=== PATIENT | female | born 1980 | race African-American/Black ===

== ENCOUNTER 2018-02-03 09:28 | Inpatient (IN) | payer OTHER ==
[2018-01-31 13:09] VITALS: BMI 36.9
--- NOTE | 2018-02-03 00:39 | HP ---
HISTORY OF PRESENT ILLNESS: Ms. Levine is a pleasant 38-year-old woman, who presented for evaluation of intracranial hypertension with lumbar puncture opening pressure of 45 mmHg. She has had visual f ield testing done. She has noticed decrease in peripheral vision and headaches and was found to have dysfunction in her periphery as well as papilledema. She has a brain MRI performed from 2016 that r eveals periventricular T2 hyperintensity likely indicative of transependymal flow and some ventriculo megaly throughout her ventricular system. There is increased ventricular size and transependymal jose w and T2 hyperintensities. MRI results show empty sella syndrome with otherwise normal appearing MRI . PAST MEDICAL HISTORY: Significant for no other medical problems. CURRENT MEDICATIONS: Unassessed. PAST SURGICAL HISTORY: None. PHYSICAL EXAMINATION: GENERAL: Patient alert and oriented x3. HEENT: She does have dysfunction in her peripheral visual mcelroy on gross visual field testing. ILDEFONSO RO: Otherwise, cranial nerves are intact. Gait is normal. ASSESSMENT: Idiopathic intracranial hypertension. PLAN: Dr. Christie met with the patient, reviewed imaging ultimately advocated for a C[employer]ELOP[employer] shunt placement . He explained to the patient the risks, benefits, and alternatives of the procedure. The patient e xpressed understanding and would like to move forward with surgery as discussed. Alvaro Dyer PA-C dictating for Dr. Christie.
[2018-02-03] MEDS ORDERED: CEFAZOLIN/Water 2 GM/20 ML SYRINGE ONE (12:12)
[2018-02-03] MEDS ORDERED: Fentanyl 100 MCG/2 ML VIAL ONE ×3 (14:00→16:40)
[2018-02-03] MEDS ORDERED: Lidocaine 0.5%/Epinephrine 1:200,000 50 ml Vial ONE (14:04)
[2018-02-03] MEDS ORDERED: Sodium Chloride 0.9% 10 ML ONE (14:05)
[2018-02-03] MEDS ORDERED: Bacitracin Zinc Ointment 30 gm TUBE ONE (15:49)
[2018-02-03] MEDS ORDERED: Ondansetron HCl/PF 4 MG/2 ML Vial IVP PRN ×2 (16:13→16:59)
[2018-02-03] MEDS ORDERED: Promethazine HCl 25 MG/ML VIAL IM PRN (16:13)
[2018-02-03] MEDS ORDERED: Promethazine HCl 25 MG/ML VIAL SLOW IVP PRN (16:13)
[2018-02-03] MEDS ORDERED: Promethazine HCl 25 MG/ML VIAL ONE (16:57)
[2018-02-03] MEDS ORDERED: PROPOFOL 200 MG/20 ML VIAL ONE (16:58)
[2018-02-03] MEDS ORDERED: Lidocaine 1% PF 5 ML VIAL ONE (16:58)
[2018-02-03] MEDS ORDERED: Ondansetron HCl/PF 4 MG/2 ML Vial ONE (16:58)
[2018-02-03] MEDS ORDERED: Dexamethasone 20 MG/5 ML VIAL ONE (16:58)
[2018-02-03] MEDS ORDERED: Glycopyrrolate 0.2 MG/ML 5 ML SYRINGE ONE (16:58)
[2018-02-03] MEDS ORDERED: diphenhydrAMINE 50 MG/ML VIAL IVP PRN (16:59)
[2018-02-03] MEDS ORDERED: Mag-Al 1200 mg/1200 mg/30 ML UDCUP PO PRN (16:59)
[2018-02-03] MEDS ORDERED: Acetaminophen 325 MG TAB PO PRN (16:59)
[2018-02-03] MEDS ORDERED: TOPIRAMATE PO PRN (17:04)
[2018-02-03] MEDS: Sodium Chloride 0.9% 1,000 ML IV SCH (17:52)
[2018-02-03] MEDS: AcetaZOLAMIDE ER 500 MG CAP PO SCH (20:14)
[2018-02-03] MEDS: CEFAZOLIN/Water 2 GM/20 ML SYRINGE SLOW IVP SCH (20:16)
--- NOTE | 2018-02-03 21:34 | OP ---
DATE OF PROCEDURE: 02/03/2018 SURGEON: Kyle Christie MD [employer] EDUCATOR: Alvaro Dyer PA-C INDICATION: Prevent neurologic decline. DIAGNOSIS: Pseudotumor cerebri. PROCEDURE: Placement of ventriculoperitoneal shunt. ANESTHESIA: General. TECHNIQUE: The patient was brought into the operating room and placed under general anesthesia. She was placed on the table in supine position. Two incisions were planned. The first, a small linear incision beneath the xiphoid and the second was a curvilinear incision over the right occiput. Both areas were prepped and draped as well as the skin between the two incisions. After prepping and drap ing and after an appropriate operative pause, both incisions were created. A single ajit hole was pl aced along the occiput. A peritoneal catheter was passed from the occipital incision to the subxipho id incision. A ventricular catheter was passed with a single pass into the ventricular space with eg ress of clear spinal fluid. This was connected to the snap-shunt assembly. The snap-shunt assembly was set to 1.0. We then entered the peritoneal space through the subxiphoid incision, where the dist al portion of the peritoneal catheter was placed. Both incisions were irrigated. Hemostasis was shayna ntained throughout. The wounds were closed in anatomic layers and a pressure dressing was applied. There were no known procedural complications.
[2018-02-04] MEDS: CEFAZOLIN/Water 2 GM/20 ML SYRINGE SLOW IVP SCH (03:41)
[2018-02-04] MEDS: Sodium Chloride 0.9% 1,000 ML IV SCH (06:07)
[2018-02-04] MEDS ORDERED: Ferrous Sulfate 325 MG TAB PO SCH (09:00)
[2018-02-04] MEDS: AcetaZOLAMIDE ER 500 MG CAP PO SCH (09:29)
[2018-02-04 12:28] VITALS: BP 164/82; TEMP 98.1
== END 2018-02-04 15:03 | disposition home or self-care (01) | DRG 33 ==
LOC: SURG A 09:28
PROVIDERS: ADMIT Neurological Surgery; ATTEND Neurological Surgery
PROC: 00160J6 Bypass Cerebral Ventricle to Peritoneal Cavity with Synthetic Substitute, Open Approach (ICD-10-PCS; principal; 2018-02-03)
DX: G93.2 Benign intracranial hypertension (principal)
CPT/HCPCS: J1100; J2001; J2270; J2405; J2550; J2704; J3010; J3490